=== PATIENT | male | born 1995 | race Caucasian/White ===

== ENCOUNTER 2020-12-17 05:15 | Emergency (ER) | payer SELFPAY ==
[~2020-12-17] VITALS: Ht 188 cm; Wt 86.2 kg
[2020-12-17 05:25] VITALS: BP 136/78
--- NOTE | 2020-12-17 05:28 | NUR ---
ED Nurse Note: Pt brought by [facility] due to Overdose. According to the EMS they gave him two narcan on the spot. Pt is A&Ox4, awake and verbal. No sob, pain and vomiting. Pt stated; he want to leave. Explained risk and benefits x3 of leaving early without the doctor recommendation. However; pt insisted to leave. Notified. pt vitals are stable. Denied head trauma, headache, dizziness and sob.
[2020-12-17] MEDS ORDERED: NARCAN4 MG NS (05:30)
--- NOTE | 2020-12-17 05:31 | Emergency Room Report ---
History of Present Illness General Chief Complaint: Substance Abuse Source: Patient Present Illness HPI This a 25-year-old male with no past medical history. He presents with chief complaint of overdose. He said that he was drinking alcohol last night and was snorting Percocet. He knew he woke up in the ambulance. Per EMS, 911 was called because he was unresponsive. They gave him Narcan which woke him up. Patient said he is fine now. Does not want to stay. There is no suicidal thoughts homicidal thought. He was in rehab in December of last year. Allergies: Coded Allergies: No Known Allergies (Unverified , 12/17/20) COVID-19 Screening Contact w/high risk pt: No Experienced COVID-19 symptoms?: No COVID-19 Testing performed PROSTHETIC AIDE: No Patient History Past Medical History: see triage record, old chart reviewed Past Surgical History: none Pertinent Family History: none Immunizations: other Reviewed Nursing Documentation: PMH: Agreed; PSxH: Agreed Nursing Documentation-PMH Hx Cardiac Problems: No Hx Hypertension: No Hx Pacemaker: No Hx Asthma: No Hx COPD: No Hx Diabetes: No Hx Cancer: No Hx Gastrointestinal Problems: No Hx Dialysis: No History Of Psychiatric Problem: No Hx Neurological Problems: No Hx Cerebrovascular Accident: No Hx Seizures: No Review of Systems Eye: Denies: eye pain, blurred vision ENT: Denies: ear pain, nose congestion, throat swelling Respiratory: Denies: cough, shortness of breath Cardiovascular: Denies: chest pain, palpitations Gastrointestinal: Denies: abdominal pain, diarrhea, nausea, vomiting Musculoskeletal: Denies: back pain, joint pain Skin: Denies: rash Neurological: Denies: headache, numbness Endocrine: Denies: increased thirst, increased urine Hematologic/Lymphatic: Denies: easy bruising All Other Systems: negative except mentioned in HPI Physical Exam Vital Signs Date Time Temp Pulse Resp B/P (MAP) Pulse Ox O2 Delivery O2 Flow Rate FiO2 12/17/20 05:17 98.8 107 16 147/99 (115) 100 Room Air Vitals with tachycardia Sp02 EP Interpretation: reviewed, normal General Appearance: well appearing, no apparent distress, alert Head: normocephalic, atraumatic Eyes: bilateral eye PERRL, bilateral eye EOMI ENT: hearing grossly normal, normal pharynx Neck: full range of motion, supple, no meningismus Respiratory: chest non-tender, lungs clear, normal breath sounds Cardiovascular #1: regular rate, rhythm, no murmur Gastrointestinal: normal bowel sounds, non tender, no mass, no organomegaly, no bruit, non-distended Musculoskeletal: back normal, normal range of motion, gait/station normal Psychiatric: mood/affect normal Medical Decision Making Diagnostic Impression: Primary Impression: Opiate or related narcotic overdose Qualified Codes: T40.601A - Poisoning by unspecified narcotics, accidental (unintentional), initial encounter ER Course Patient presents with opiate overdose. I try to convince the patient to stay here low bit longer to make sure that once the Narcan wears off, he does not become unresponsive. Patient still wants to go home. He is competent to make that decision. We will go ahead and prescribe Narcan as an outpatient. He denies any suicidal thoughts homicidal thought. There is no criteria for 5150. Last Vital Signs Date Time Temp Pulse Resp B/P (MAP) Pulse Ox O2 Delivery O2 Flow Rate FiO2 12/17/20 05:17 98.8 107 16 147/99 (115) 100 Room Air Status: improved Disposition: HOME, SELF-CARE Condition: Stable Scripts Naloxone HCl (Narcan) 4 Mg [place] 4 MG NS ONCE for overdose, #1 SPRAY Prov: Robson Flores MD 12/17/20 Additional Instructions: Abstain from drug use. Follow-up with rehab within a week. Return if symptoms worsen. Robson Flores MD Dec 17, 2020 05:31
--- NOTE | 2020-12-17 05:46 | NUR ---
ED Nurse Note: Dr mckee advised the pt to stay but the pt refused. I explained why he need and should stay but the pt refused. I asked me to call his mom to pick him up; i gave him a phone he talked to his mom. I talked to his mom (pt gave me permission to talk to her) about what happend and gave her the hospital address. His dad will pick him up within 30 min.
[2020-12-17 06:14] VITALS: BP 136/78
--- NOTE | 2020-12-17 06:16 | NUR ---
ER DISCHARGE NOTE: Patient is cleared to be discharged per ERMD, pt is aox4, on room air, with stable vital signs. pt was given dc and prescription instructions, pt was able to verbalize understanding, pt id band and iv site removed without complications. pt is able to ambulate with steady gait. pt took all belongings.
== END 2020-12-17 06:14 | disposition home or self-care (01) ==
LOC: EDBD 05:15 → EMR 05:37
DX: T40.601A Poisoning by unspecified narcotics, accidental (unintentional), initial encounter (principal); X58.XXXA Exposure to other specified factors, initial encounter; Y92.9 Unspecified place or not applicable
CPT/HCPCS: 96374; 99284; J2405